=== PATIENT | male | born 1955 | race Caucasian/White ===

== ENCOUNTER 2016-04-04 09:58 | Emergency (ER) | payer OTHER ==
[~2016-04-04] VITALS: Ht 180.3 cm; Wt 93.0 kg
[2016-04-04 10:01] VITALS: BP 142/86; PULSE 60; RESP 16; TEMP 98.6; O2SAT 98
[2016-04-04] MEDS ORDERED: FOSI40TA PO (10:08)
[2016-04-04] MEDS ORDERED: LIPI20TA PO (10:08)
[2016-04-04] MEDS ORDERED: MECLIZINE HCL 25 MG TAB PO ONE (10:45)
[2016-04-04] MEDS ORDERED: SODIUM CHLORIDE 0.9% FLUSH 5 ML FLUSH IVF PRN (10:45)
[2016-04-04] MEDS ORDERED: LORazepam 2 MG/ML VIAL IV PUSH ONE (10:45)
[2016-04-04] MEDS ORDERED: SODIUM CHLOR 0.9% 1000 ML INJ 1,000 ML IV ONE (10:45)
[2016-04-04 10:52] LABS: AUTOMATED NEUTROPHIL # 5.7 TH/MM3 (1.8-7.7); BASOPHIL # 0.1 TH/MM3 (0-0.2); BASOPHIL % 1.1 % (0.0-2.0); EOSINOPHIL # 0.2 TH/MM3 (0-0.4); EOSINOPHIL % 2.6 % (0.0-4.0); HEMATOCRIT 49.5 % (39.0-51.0); HEMO FLAGS DIFF FINAL; LYMPHOCYTE # 2.1 TH/MM3 (1.0-4.8); MEAN CELL VOLUME 87.4 FL (80.0-100.0); MEAN CORPUSCULAR HEMOGLOBIN 28.8 PG (27.0-34.0); MONO % 4.5 % (0.0-8.0); NEUT % 66.8 % (16.0-70.0); PLATELET COUNT 236 TH/MM3 (150-450); RED BLOOD COUNT 5.67 MIL/MM3 (4.50-5.90); RED CELL DISTRIBUTION WIDTH 12.9 % (11.6-17.2); WHITE BLOOD COUNT 8.5 TH/MM3 (4.0-11.0)
[2016-04-04 11:00] VITALS: BP 138/84; PULSE 58; RESP 16; O2SAT 98
[2016-04-04 11:02] LABS: CHLORIDE 110 MEQ/L (98-107); POTASSIUM 3.7 MEQ/L (3.5-5.1); SODIUM (NA) 143 MEQ/L (136-145)
[2016-04-04 11:07] LABS: ANION GAP 7 MEQ/L (5-15); BICARBONATE 25.6 MEQ/L (21.0-32.0); BLOOD UREA NITROGEN 17 MG/DL (7-18)
[2016-04-04 11:10] LABS: ALT (GPT) 29 U/L (12-78); AST (GOT) 18 U/L (15-37); GLOMERULAR FILTRATION RATE 69 ML/MIN (>89)
[2016-04-04 11:11] LABS: TOTAL BILIRUBIN ADULT 0.7 MG/DL (0.2-1.0)
[2016-04-04 11:13] LABS: ALKALINE PHOSPHATASE 78 U/L (45-117)
--- NOTE | 2016-04-04 11:23 | RADHPO ---
EXAM DATE/TIME: 04/04/2016 10:54 [facility] COMPARISON: No previous studies available for comparison. INDICATIONS : Dizziness. RADIATION DOSE: 61.52 CTDIvol (mGy) MEDICAL HISTORY : Hypertension. SURGICAL HISTORY : Inguinal hernia repair. ENCOUNTER: Initial ACUITY: 2 days PAIN SCALE: 0/10 LOCATION: cranial TECHNIQUE: Multiple contiguous axial images were obtained of the head. Using automated exposure control and adjustment of the mA and/or kV according to patient size, radiation dose was kept as low as reasonably achievable to obtain optimal diagnostic quality images. FINDINGS: CEREBRUM: The ventricles are normal for age. No evidence of midline shift, mass lesion, hemorrha ge or acute infarction. No extra-axial fluid collections are seen. POSTERIOR FOSSA: The cerebellum and brainstem are intact. The 4th ventricle is midline. The cer ebellopontine angle is unremarkable. EXTRACRANIAL: The visualized portion of the orbits is intact. SKULL: The calvaria is intact. No evidence of skull fracture. CONCLUSION: Unremarkable exam. Johnathan Ford MD on April 04, 2016 at 11:18 Board Certified Radiologist. This report was verified electronically.
--- NOTE | 2016-04-04 11:30 | PD ---
HPI Chief Complaint: Dizziness Time Seen by Provider: 10:24 Travel History International Travel<30 days: No Contact w/Intl Traveler<30days: No Traveled to known affect area: No History of Present Illness HPI Patient is a 61-year-old male who presents to emergency room with complaints of acute onset dizziness. Patient reports that he woke up yesterday morning and try to get up from bed but felt dizzy. Patient reports that he feels as if the whole world is spinning around him, that he feels nauseous and unstable on his feet when he gets up to ambulate. Patient reports that he has complete resolution of symptoms when he lies down and lays straight. Patient reports that he was symptomatic all day yesterday and slept all day, reports that overall, he was eating and drinking like his normal self. Patient reports that he woke up this morning and had continuous symptoms and became concerned. Reports no vision changes at this time, reports no fevers or chills. Reports dizziness only with ambulation. Reports that he has had similar symptoms in the past, reports that symptoms were short and resolved after a few hours on its own. Patient with no other complaints at this time. PFSH Past Medical History High Cholesterol: Yes Hypertension: Yes Immunizations Current: Yes Influenza Vaccination: Yes Past Surgical History Other Surgery: Yes (RIGHT GROIN HERNIA REPAIR) Family History Family History: vertigo Social History Alcohol Use: No Tobacco Use: No (FORMER) Substance Use: No Allergies-Medications (Allergen,Severity, Reaction): Coded Allergies: No Known Allergies (Unverified , 04/04/16) Reported Meds & Prescriptions Reported Meds & Active Scripts Active Reported Lipitor (Atorvastatin Calcium) 20 Mg Tab 20 Mg PO DAILY Fosinopril (Fosinopril Sodium) 40 Mg Tab 40 Mg PO DAILY Review of Systems General / Constitutional: No: Fever Eyes: No: Visual changes HENT: No: Headaches Cardiovascular: No: Chest Pain or Discomfort, Palpitations, Irregular Rhythm Respiratory: No: Shortness of Breath Gastrointestinal: No: Abdominal Pain Genitourinary: No: Dysuria Musculoskeletal: No: Pain Skin: No Rash Neurologic: Positive: Dizziness, Ataxia, No: Weakness, Headache Psychiatric: No: Depression Endocrine: No: Polydipsia Hematologic/Lymphatic: No: Easy Bruising Physical Exam Narrative GENERAL: NAD, Nontoxic SKIN: Warm and dry. HEAD: Atraumatic. Normocephalic. EYES: Pupils equal and round. No scleral icterus. No injection or drainage. Patient with horizontal nystagmus on exam ENT: No nasal bleeding or discharge. Mucous membranes pink and moist. NECK: Trachea midline. No JVD. CARDIOVASCULAR: Regular rate and rhythm. No murmur appreciated. RESPIRATORY: No accessory muscle use. Clear to auscultation. Breath sounds equal bilaterally. GASTROINTESTINAL: Abdomen soft, non-tender, nondistended. Hepatic and splenic margins not palpable. MUSCULOSKELETAL: No obvious deformities. No clubbing. No cyanosis. No edema. NEUROLOGICAL: Awake and alert. No obvious cranial nerve deficits. Motor grossly within normal limits. Normal speech. Cranial nerves to 12 grossly intact with no obvious deficits PSYCHIATRIC: Appropriate mood and affect; insight and judgment normal. Data Data Last Documented VS Vital Signs Date Time Temp Pulse Resp B/P Pulse Ox O2 Delivery O2 Flow Rate FiO2 04/04/16 10:10 16 98 Room Air 04/04/16 10:01 98.6 60 142/86 Orders Complete Blood Count With Diff (04/04/16 10:31) Comprehensive Metabolic Panel (04/04/16 10:31) Ct Brain W/O Iv Contrast(Rout) (04/04/16 10:31) Iv Access Insert/Monitor (04/04/16 10:31) Sodium Chloride 0.9% Flush (Ns Flush) (04/04/16 10:45) Sodium Chlor 0.9% 1000 Ml Inj (Ns 1000 M (04/04/16 10:45) Meclizine (Antivert) (04/04/16 10:45) Lorazepam Inj (Ativan Inj) (04/04/16 10:45) Labs Laboratory Tests Test 04/04/16 10:35 White Blood Count 8.5 TH/MM3 Red Blood Count 5.67 MIL/MM3 Hemoglobin 16.3 GM/DL Hematocrit 49.5 % Mean Corpuscular Volume 87.4 FL Mean Corpuscular Hemoglobin 28.8 PG Mean Corpuscular Hemoglobin 33.0 % Concent Red Cell Distribution Width 12.9 % Platelet Count 236 TH/MM3 Mean Platelet Volume 7.9 FL Neutrophils (%) (Auto) 66.8 % Lymphocytes (%) (Auto) 25.0 % Monocytes (%) (Auto) 4.5 % Eosinophils (%) (Auto) 2.6 % Basophils (%) (Auto) 1.1 % Neutrophils # (Auto) 5.7 TH/MM3 Lymphocytes # (Auto) 2.1 TH/MM3 Monocytes # (Auto) 0.4 TH/MM3 Eosinophils # (Auto) 0.2 TH/MM3 Basophils # (Auto) 0.1 TH/MM3 CBC Comment DIFF FINAL Differential Comment Sodium Level 143 MEQ/L Potassium Level 3.7 MEQ/L Chloride Level 110 MEQ/L Carbon Dioxide Level 25.6 MEQ/L Anion Gap 7 MEQ/L Blood Urea Nitrogen 17 MG/DL Creatinine 1.10 MG/DL Estimat Glomerular Filtration 69 ML/MIN Rate Random Glucose 114 MG/DL Calcium Level 8.0 MG/DL Total Bilirubin 0.7 MG/DL Aspartate Amino Transf 18 U/L (AST/SGOT) Alanine Aminotransferase 29 U/L (ALT/SGPT) Alkaline Phosphatase 78 U/L Total Protein 6.6 GM/DL Albumin 3.4 GM/DL MDM Medical Decision Making Medical Screen Exam Complete: Yes Emergency Medical Condition: Yes Interpretation(s) Vital Signs Date Time Temp Pulse Resp B/P Pulse Ox O2 Delivery O2 Flow Rate FiO2 04/04/16 10:10 16 98 Room Air 04/04/16 10:01 98.6 60 16 142/86 98 Differential Diagnosis Vertigo, VBI, TIA, electrolyte abnormality, intracranial hemorrhage Narrative Course Patient is a 61-year-old male who presents to emergency room with complaints of acute onset dizziness. Patient reports that symptoms began yesterday morning, reports that symptoms are worse with sitting up and ambulation and resolve with lying down. Overall, patient is nontoxic, patient does have horizontal nystagmus. Patient with most likely benign positional vertigo. CAT scan of head ordered, labs as well. Will give patient IV fluids, Antivert and Ativan for treatment of symptoms. Will continue to monitor patient Patient reevaluated, patient reports that he is feeling much better at this time. Reports near resolution of symptoms at this time. Patient able to ambulate without any difficulty. I reviewed all labs and studies with pt and his in detail. Plan to sent pt home with follow up with pcp. Patient will return to ER as needed. Diagnosis Primary Impression: Vertigo Patient Instructions: General Instructions Additional Instructions: Please return to ER as needed Please return to ER if symptoms return Please follow-up with a primary care doctor as soon as possible Med/Other Pt SpecificInfo: Prescription(s) given Scripts Meclizine 25 Mg Tab25 Mg PO TID PRN (VERTIGO) #30 TAB Ref 0 Prov:Ni Mendez DO 04/04/16 Disposition: 01 DISCHARGE HOME Condition: Stable Ni Mendez DO Apr 04, 2016 11:30
[2016-04-04 12:00] VITALS: BP 122/76; PULSE 61; RESP 16; O2SAT 98
[2016-04-04 13:00] VITALS: BP 132/86; PULSE 60; RESP 16; O2SAT 98
[2016-04-04] MEDS ORDERED: MECL-62 PO (13:13)
[2016-06-28] MEDS ORDERED: PERC5TAB12 PO (15:04)
== END 2016-04-04 13:34 | disposition home or self-care (01) ==
LOC: PHED 09:58
DX: R42 Dizziness and giddiness (principal); E78.00 Pure hypercholesterolemia, unspecified; I10 Essential (primary) hypertension
CPT/HCPCS: 70450; 80053; 85025; 96361; 96374; 99284; J2060; J7030

== ENCOUNTER → 2016-06-28 | Day surgery (SDC) | payer OTHER ==
[~2016-06-28] VITALS: Ht 180.3 cm; Wt 95.0 kg
[~2016-06-28] MED LIST: ATOR10TA15 PO; BUPIVACAINE/EPINEPHRINE 0.25% PF 30 ML VIAL ONE; FAMOTIDINE 20 MG/2 ML VIAL ONE; FOSI40TA PO; LACTATED RINGER'S 1000 ML INJ 1,000 ML ONE; LIDOCAINE 1%/EPINEPHrine 1:100,000 SOLN 30 ML VIAL ONE; LIDOCAINE HCL 1% PF 30 ML VIAL ONE; LIPI20TA PO; MECL-62 PO; MIDAZOLAM HCL 2 MG/2 ML VIAL ONE; PERC5TAB12 PO; PROPOFOL 200 MG/20 ML AMP IV ONE; SODIUM BICARBONATE 8.4% INJ 50 ML ONE; ceFAZolin INJ 1,000 MG VIAL IV ONE; ceFAZolin INJ 1,000 MG VIAL ONE
[2016-06-28 12:02] VITALS: BP 125/77; PULSE 67; RESP 16; TEMP 98; O2SAT 98
[2016-06-28 12:32] LABS: INTERNATIONAL NORMALIZED RATIO 0.9 RATIO; PROTHROMBIN TIME - PATIENT 10.3 SEC (9.8-11.6)
--- NOTE | 2016-06-28 13:22 | RADHPO ---
EXAM DATE/TIME: 06/28/2016 11:44 [facility] COMPARISON: No previous studies available for comparison. INDICATIONS : Rule out pneumonia, pneumothorax or any other communicable disease. MEDICAL HISTORY : None. SURGICAL HISTORY : None. ENCOUNTER: Initial ACUITY: 1 day PAIN SCORE: 0/10 LOCATION: Bilateral chest FINDINGS: A single view of the chest demonstrates the lungs to be symmetrically aerated without evidence of mas s, infiltrate or effusion. The cardiomediastinal contours are unremarkable. Osseous structures are intact. CONCLUSION: 1. No acute cardiopulmonary findings. Kwan Taylor MD on June 28, 2016 at 12:40 Board Certified Radiologist. This report was verified electronically.
[2016-06-28 16:45] VITALS: BP 130/74; PULSE 58; RESP 18; TEMP 97.7; O2SAT 100
--- NOTE | 2016-06-28 21:19 | MP ---
cc: MD REAL,MADELINE DATE OF SURGERY: 06/28/2016. PREOPERATIVE DIAGNOSIS: Sebaceous cyst back, measuring about 3 cm in diameter. POSTOPERATIVE DIAGNOSIS: Sebaceous cyst back, measuring about 3 cm in diameter. OPERATIVE PROCEDURE PERFORMED: Excision of sebaceous cyst, irrigation and closure. SURGEON: Madeline Capone M.D. ANESTHESIA: 1% Xylocaine / MAC. ESTIMATED BLOOD LOSS: 2 cc. DESCRIPTION OF THE PROCEDURE IN DETAIL: The patient was prepped and draped in the usual fashion. The area was infiltrated with 1% xylocaine and then a transverse incision was made over the cyst area and deepened down to almost through the entire skin to the level of the sebaceous cyst capsule. The capsule was now dissected away from the skin layers and then dissected down and then the entire cyst was removed and opened on the side table. Sebaceous material escaped. The area was irrigated with copious amounts of saline. The incision was closed with 3-0 Vicryl and 4-0 subcuticular Monocryl. Dressing applied. The patient tolerated the procedure well. Madeline MONTGOMERY/MARCIANO /2:58 PM /9:13 PM
--- NOTE | 2016-06-29 10:31 | EKG ---
Date Performed: 06/28/2016 Time Performed: 12:37:56 PTAGE: 61 years EKG: Sinus rhythm . Normal ECG NO PREVIOUS TRACING DOCTOR: Stacia Montague Interpretating Date/Time 06/29/2016 10:29:36
== END | disposition home or self-care (01) ==
LOC: PHSDC 11:04
PROVIDERS: ATTEND Surgery
DX: L72.3 Sebaceous cyst (principal); I10 Essential (primary) hypertension; Z01.810 Encounter for preprocedural cardiovascular examination; Z01.818 Encounter for other preprocedural examination
CPT/HCPCS: 11400; 36415; 71010; 85610; 88304; 93005; J0690; J2250; J7120

== ENCOUNTER 2016-07-31 10:22 | Emergency (ER) | payer OTHER ==
[~2016-07-31] VITALS: Ht 180.3 cm; Wt 94.0 kg
[~2016-07-31 10:22] MED LIST changes: -ATOR10TA15 PO; -BUPIVACAINE/EPINEPHRINE 0.25% PF 30 ML VIAL ONE; -FAMOTIDINE 20 MG/2 ML VIAL ONE; -LACTATED RINGER'S 1000 ML INJ 1,000 ML ONE; -LIDOCAINE 1%/EPINEPHrine 1:100,000 SOLN 30 ML VIAL ONE; -LIDOCAINE HCL 1% PF 30 ML VIAL ONE; -MIDAZOLAM HCL 2 MG/2 ML VIAL ONE; -PROPOFOL 200 MG/20 ML AMP IV ONE; -SODIUM BICARBONATE 8.4% INJ 50 ML ONE; -ceFAZolin INJ 1,000 MG VIAL IV ONE; -ceFAZolin INJ 1,000 MG VIAL ONE
[2016-07-31 10:26] VITALS: BP 137/88; PULSE 58; RESP 14; TEMP 97.9; O2SAT 98
[2016-07-31] MEDS ORDERED: ATOR10TA15 PO (10:35)
--- NOTE | 2016-07-31 11:47 | RADHPO ---
EXAM DATE/TIME: 07/31/2016 10:54 [facility] COMPARISON: No previous studies available for comparison. INDICATIONS : Left fourth digit pain after injuring at work MEDICAL HISTORY : None. SURGICAL HISTORY : None. ENCOUNTER: Initial ACUITY: 1 day PAIN SCORE: 6/10 LOCATION: Left tip of fourth tip. FINDINGS: Examination of the fourth digit of the left hand demonstrates no evidence of fracture or dislocation. No radiopaque foreign bodies are seen. The soft tissues are intact. CONCLUSION: 1. No acute fracture or dislocation. Robbie Ramos MD on July 31, 2016 at 11:43 Board Certified Radiologist. This report was verified electronically.
--- NOTE | 2016-07-31 11:48 | PD ---
HPI Chief Complaint: Injury Time Seen by Provider: 11:30 Travel History International Travel<30 days: No Contact w/Intl Traveler<30days: No Traveled to known affect area: No History of Present Illness HPI 61-year-old male presents emergency department for evaluation of a laceration to his left ring finger. Patient reports the injury occurred at work. His left hand primarily ring finger was crushed in between 2 metal carts Causing a laceration. He reports normal sensation in the digit. He has full range of motion in the digit. He reports no other injury. Bleeding is well controlled. He has no past medical history. No allergies. Tetanus status up-to-date [facility] Past Medical History Medical History: Denies Significant Hx Cancer: No Cardiovascular Problems: No High Cholesterol: Yes Diabetes: No Endocrine: No Genitourinary: No Hepatitis: No Hiatal Hernia: No Hypertension: Yes Immune Disorder: No Musculoskeletal: No Neurologic: No Psychiatric: No Reproductive: No Respiratory: No Immunizations Current: Yes Thyroid Disease: No Past Surgical History Abdominal Surgery: Yes (HERNIORRHAPHY) AICD: No Cardiac Surgery: No Ear Surgery: No Endocrine Surgery: No Eye Surgery: Yes (LAZY EYE CORRECTION AT 9 Y/O) Genitourinary Surgery: No Gynecologic Surgery: No Joint Replacement: No Oral Surgery: Yes (TONSILLECTOMY) Pacemaker: No Thoracic Surgery: No Tonsillectomy: Yes Other Surgery: Yes (RIGHT GROIN HERNIA REPAIR) Social History Alcohol Use: No Tobacco Use: No (FORMER) Substance Use: No Allergies-Medications (Allergen,Severity, Reaction): Coded Allergies: No Known Allergies (Unverified , 07/31/16) Reported Meds & Prescriptions Reported Meds & Active Scripts Active Reported Atorvastatin (Atorvastatin Calcium) 10 Mg Tab 10 Mg PO HS Fosinopril (Fosinopril Sodium) 40 Mg Tab 40 Mg PO DAILY Review of Systems Except as stated in HPI: all other systems reviewed are Neg Physical Exam Narrative GENERAL: Alert well-appearing male. SKIN: Focused skin assessment warm/dry. 2 cm laceration to left distal ring finger lateral aspect. HEAD: Atraumatic. Normocephalic. EYES: Pupils equal and round. No scleral icterus. No injection or drainage. NECK: Trachea midline. No JVD. CARDIOVASCULAR: Regular rate and rhythm. No murmur appreciated. RESPIRATORY: No accessory muscle use. Clear to auscultation. Breath sounds equal bilaterally. MUSCULOSKELETAL: No obvious deformities. No clubbing. No cyanosis. No edema. 2 cm laceration left distal ring finger lateral aspect. No tendon injury. Full range of motion against resistance. Digit is neurovascularly intact. NEUROLOGICAL: Awake and alert. No obvious cranial nerve deficits. Motor grossly within normal limits. Normal speech. PSYCHIATRIC: Appropriate mood and affect; insight and judgment normal. Data Data Last Documented VS Vital Signs Date Time Temp Pulse Resp B/P Pulse Ox O2 Delivery O2 Flow Rate FiO2 07/31/16 10:26 97.9 58 14 137/88 98 Room Air Orders Finger ([id number]) (07/31/16 ) [facility] Medical Decision Making Medical Screen Exam Complete: Yes Emergency Medical Condition: Yes Differential Diagnosis Finger laceration, tendon laceration, crush injury, finger fracture Narrative Course 61-year-old male presents to the emergency department for evaluation of a left finger laceration. Patient reports injury occurred while working at the [employer]. 2 large metal carts crushed his finger causing a laceration. He has normal range of motion normal sensation. Laceration will be repaired. Patient struck to the follow-up with his primary doctor for recheck and suture removal. Hand x-ray left: No acute fracture. No dislocation. Procedures Procedure Narrative LACERATION LOCATION: Left fourth digit LENGTH: 2 cm NUMBER OF STITCHES/TAMMY: 3 REPAIR: The area of the laceration was prepped with Betadine and sterilely draped. The laceration was infiltrated with 1% lidocaine. The wound was copiously irrigated and explored without evidence of foreign body, tendon injury or neurovascular injury. The wound was closed using 4-0 Ethilon. This was a angle layer repair. A sterile dressing was applied. The patient was advised to keep the dressing clean and dry. Patient tolerated the procedure well. Diagnosis Primary Impression: Laceration of finger of left hand Qualified Code: S61.219A - Laceration of finger of left hand, initial encounter Referrals: Primary Care Physician Patient Instructions: Finger Laceration (ED), General Instructions Additional Instructions: Do not submerge the wound in water. Sutures need to be removed in 7-10 days. Return to the emergency department if he developed increased pain, redness, or drainage from the site. Disposition: 01 DISCHARGE HOME Condition: Stable Vera Barbour Jul 31, 2016 11:47
== END 2016-07-31 12:27 | disposition home or self-care (01) ==
LOC: PHEFT 10:22
DX: S61.215A Laceration without foreign body of left ring finger without damage to nail, initial encounter (principal); W23.0XXA Caught, crushed, jammed, or pinched between moving objects, initial encounter; Y92.242 Post office as the place of occurrence of the external cause; Y99.0 Civilian activity done for income or pay
CPT/HCPCS: 12001; 73140